=== PATIENT | female | born 1995 ===

== ENCOUNTER 2022-05-17 18:34 | Emergency (ER) | payer MEDICAID ==
[~2022-05-17] VITALS: Ht 162.6 cm; Wt 52.3 kg
[2022-05-17] MEDS ORDERED: IBUPROFEN 600 MG TABLET PO ONE (21:15)
[2022-05-17] MEDS ORDERED: SULFAMETHOX/TRIMETH DS 800-160 MG/TABLET PO ONE (21:15)
[2022-05-17 22:01] VITALS: BP 122/74
== END 2022-05-17 22:14 | disposition home or self-care (01) ==
LOC: EMS 18:40
DX: N76.4 Abscess of vulva (principal)
CPT/HCPCS: 99283

== ENCOUNTER 2022-09-09 13:43 | Emergency (ER) | payer MEDICAID ==
[~2022-09-09] VITALS: Ht 165.1 cm; Wt 56.8 kg
[2022-09-09 13:45] VITALS: BP 116/78
[2022-09-09] MEDS ORDERED: CEPH-558 PO (15:58)
== END 2022-09-09 16:42 | disposition home or self-care (01) ==
LOC: EMS 13:48
DX: L73.9 Follicular disorder, unspecified (principal)
CPT/HCPCS: 99281; Z7502